=== PATIENT | female | born 1965 | race Caucasian/White ===

== ENCOUNTER 2025-08-26 05:41 | Emergency (ER) | payer OTHER ==
[~2025-08-26] VITALS: Ht 154.9 cm; Wt 68.5 kg
[~2025-08-26 05:41] MED LIST: PHEN30CA21 PO; ZOFR4TAB14 PO
[2025-08-26 05:43] VITALS: BP 133/74; TEMP 97; O2SAT 98
[2025-08-26] MEDS: PROPARACAINE 0.5% OPHTH SOL 15ML OS ONE (06:40)
[2025-08-26] MEDS: FLUORESCEIN OPHTH 1 MG STRIP OS ONE (06:40)
== END 2025-08-26 07:35 | disposition home or self-care (01) ==
LOC: M ED 05:41
DX: H57.12 Ocular pain, left eye (principal); Z79.899 Other long term (current) drug therapy; Z88.8 Allergy status to other drugs, medicaments and biological substances